=== PATIENT | female | born 1960 | race Caucasian/White ===

== ENCOUNTER 2016-11-29 07:49 | Day surgery (SDC) | payer OTHER ==
[2016-11-23 14:39] VITALS: BMI 31.2
[~2016-11-29 07:49] MED LIST: LACTATED RINGERS 1,000 ML IV SCH
[2016-11-29 08:13] VITALS: TEMP 97.8
[2016-11-29] MEDS ORDERED: fentaNYL (PF) 50 MCG/ML 2 ML AMP ONE (08:50)
[2016-11-29] MEDS ORDERED: MIDAZOLAM 2 MG/2 ML VIAL ONE (08:50)
[2016-11-29] MEDS ORDERED: PROPOFOL 10 MG/ML 20 ML VIAL IV ONE (08:50)
[2016-11-29] MEDS ORDERED: LIDOCAINE 1% INJ 10MG/ML (20 ML MDV) ONE (08:50)
--- NOTE | 2016-11-29 09:15 | P.PCN ---
Date of Procedure: 11/29/16 Procedure(s) Performed: Procedure: Total colonoscopy. Preoperative diagnosis: Screening for neoplasia. Postoperative diagnosis: Sigmoid diverticulosis with no evidence of acute diverticulitis, strictures, polyps or cancer. Preparation: HalfLytely prep. Sedation: Was provided by anesthesia. Brief clinical history: The patient is a 56-year-old female who is referred for this evaluation for screening for neoplasia, age being her risk factor. She has no abdominal complaints, bleeding or anemia. No family history of colon cancer. This would be her first colonoscopy. Procedure: With the patient on her left lateral decubitus position and after informed consent and adequate sedation, the perianal area was inspected and it did not show any fissures or fistulas. There were no masses felt on digital rectal examination. The Olympus CFQ 160L video colonoscope was then inserted in the rectum in the usual fashion and advanced to the cecum. There were multiple diverticular orifices noted scattered in the sigmoid with no evidence of acute diverticulitis or strictures. No polyps or tumors were seen. I retroflexed endoscope in the rectum before the endoscope was withdrawn. The patient tolerated the procedure well. Plan: The patient was reassured. Discussed dietary measures. She will follow- up with you as planned and I recommended a repeat exam in 10 years.
[2016-11-29 09:17] VITALS: RESP 16
[2016-11-29 09:41] VITALS: BP 128/86; PULSE 77
== END 2016-11-29 10:04 | disposition home or self-care (01) ==
LOC: ORWHC2ENDO 07:49
DX: Z12.11 Encounter for screening for malignant neoplasm of colon (principal); K57.30 Diverticulosis of large intestine without perforation or abscess without bleeding; E03.9 Hypothyroidism, unspecified; I10 Essential (primary) hypertension; Z79.899 Other long term (current) drug therapy; Z91.09 Other allergy status, other than to drugs and biological substances
CPT/HCPCS: J2250; J2001; J3010; J2704; G0121; 99153

== ENCOUNTER → 2016-12-14 | Outpatient (CLI) | payer OTHER ==
--- NOTE | 2016-12-14 16:09 | XR ---
EXAMINATION TYPE: XR shoulder complete LT DATE OF EXAM ORDERED: 12/14/2016 3:03 PM HISTORY: Chronic left-sided shoulder pain. COMPARISON: None. FINDINGS: There is amorphous calcification overlying the expected course of the supraspinatus tendon . This may reflect chronic calcific tendinosis. No fracture, dislocation or other acute osseous lesio n is seen. 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
== END | disposition home or self-care (01) ==
LOC: LABWHC1 14:30
PROVIDERS: ATTEND Family Medicine
DX: M25.512 Pain in left shoulder (principal); E03.9 Hypothyroidism, unspecified
CPT/HCPCS: 36415; 84439; 84443

== ENCOUNTER → 2019-04-01 | Outpatient (CLI) | payer BC ==
--- NOTE | 2019-04-02 09:16 | MM ---
Reason for exam: screening (asymptomatic). Last mammogram was performed 2 years and 8 months ago. History: Patient is postmenopausal and had first child at age 31. Took hormonal contraceptives for 21 years beginning at age 23. Took estrogen for 1 year 10 months beginning at age 50. Took progesterone for 4 years 10 months beginning at age 50. Physical Findings: A clinical breast exam by your physician is recommended on an annual basis and results should be correlated with mammographic findings. MG 3D Screening Mammo W/Cad Bilateral CC and MLO view(s) were taken. Prior study comparison: August 03, 2016, bilateral MG screening mammo w CAD. June 29, 2015, bilateral MG screening mammo w CAD. There are scattered fibroglandular densities. No significant changes when compared with prior studies. ASSESSMENT: Negative, BI-RAD 1 RECOMMENDATION: Routine screening mammogram of both breasts in 1 year.
== END | disposition home or self-care (01) ==
LOC: RADMAMWWP 03-31 12:34
PROVIDERS: ATTEND Obstetrics & Gynecology
DX: Z12.31 Encounter for screening mammogram for malignant neoplasm of breast (principal)
CPT/HCPCS: 77063; 77067

== ENCOUNTER → 2020-08-22 | Outpatient (CLI) | payer BC ==
--- NOTE | 2020-08-23 14:01 | MM ---
Reason for exam: screening (asymptomatic). Last mammogram was performed 1 year and 5 months ago. History: Patient is postmenopausal and had first child at age 31. Took hormonal contraceptives for 21 years beginning at age 23. Took estrogen for 1 year 10 months beginning at age 50. Took progesterone for 4 years 10 months beginning at age 50. Physical Findings: A clinical breast exam by your physician is recommended on an annual basis and results should be correlated with mammographic findings. MG 3D Screening Mammo W/Cad Bilateral CC and MLO view(s) were taken. Prior study comparison: April 01, 2019, bilateral MG 3d screening mammo w/cad. August 03, 2016, bilateral MG screening mammo w CAD. There are scattered fibroglandular densities. No significant changes when compared with prior studies. ASSESSMENT: Benign, BI-RAD 2 RECOMMENDATION: Routine screening mammogram of both breasts in 1 year.
== END | disposition home or self-care (01) ==
LOC: RADMAMWWP 10:46
PROVIDERS: ATTEND Family Medicine
DX: Z12.31 Encounter for screening mammogram for malignant neoplasm of breast (principal)
CPT/HCPCS: 77063; 77067

== ENCOUNTER 2020-12-25 12:43 | Emergency (ER) | payer BC ==
[2020-12-25 12:47] VITALS: RESP 18; TEMP 98.4
[2020-12-25] MEDS ORDERED: diphenhydrAMINE 50 MG/ML 1 ML VIAL IVP STA (12:56)
[2020-12-25] MEDS ORDERED: FAMOTIDINE 20 MG/2 ML VIAL IV STA (12:56)
[2020-12-25] MEDS ORDERED: methylPREDNISolone SOD SUCCI 125 MG/2 ML VIAL IV STA (12:56)
--- NOTE | 2020-12-25 13:23 | ED ---
General Adult HPI - General Chief complaint: Allergic Reaction Stated complaint: bilat eye swelling Time Seen by Provider: 12/25/20 12:49 Source: patient Mode of arrival: ambulatory Limitations: no limitations - History of Present Illness Initial comments: 60-year-old female with a past medical history of hypertension, thyroid disorder presents to the emergency room for swelling of the eyes. Patient reports that about 3 hours prior to arrival she had a slight cough start and then she developed congestion. Patient states that her eyes started swelling. Patient did take one Benadryl prior to arrival. Patient denies shortness of breath. Denies swelling of lips tongue or throat. Patient states she started new medication yesterday called Previgen for memory loss. She did not have any issues yesterday however did take another dose today. Symptoms started a couple hours after. Patient also noted to have several environmental ALLERGIES inclu ding CAT dander, dog dander, treated shrug:.Patient has no other complaints at this time including shortness of breath, chest pain, abdominal pain, nausea or vomiting, headache, or visual changes. - Related Data Home Medications Medication Instructions Recorded Confirmed Allergy Relief 10mg 10 mg PO DAILY 11/23/16 11/29/16 Aspirin 81 mg PO DAILY 11/23/16 11/23/16 Lisinopril [Zestril] 10 mg PO DAILY 11/23/16 11/29/16 Ascorbic Acid [Vitamin C] 1,000 mg PO DAILY 12/25/20 12/25/20 [id number] 1 tab PO Q4HR PRN 12/25/20 12/25/20 [Excedrin] Levothyroxine Sodium [Synthroid] 75 mcg PO DAILY 12/25/20 12/25/20 Multivitamins, Thera [Multivitamin 1 tab PO DAILY 12/25/20 12/25/20 (formulary)] diphenhydrAMINE [Benadryl] 25 mg PO BID PRN 12/25/20 12/25/20 Previous Rx's Medication Instructions Recorded Famotidine [Pepcid] 20 mg PO BID #30 tablet 12/25/20 predniSONE 50 mg PO DAILY #4 tablet 12/25/20 Allergies Allergy/AdvReac Type Severity Reaction Status Date / Time cat dander Allergy SINUS Verified 12/25/20 13:45 dog dander Allergy SINUS Verified 12/25/20 13:45 tree and shrub pollen Allergy Rash/Hives Verified 12/25/20 13:45 Review of Systems ROS Statement: Those systems with pertinent positive or pertinent negative responses have been documented in the HPI. ROS Other: All systems not noted in ROS Statement are negative. Past Medical History Past Medical History: Hypertension, Osteoarthritis (OA), Thyroid Disorder History of Any Multi-Drug Resistant Organisms: None Reported Past Surgical History: Section Additional Past Surgical History / Comment(s): NASAL SURGERY Past Anesthesia/Blood Transfusion Reactions: No Reported Reaction Past Psychological History: Anxiety Smoking Status: Never smoker Past Alcohol Use History: Occasional Past Drug Use History: None Reported - Past Family History Mother Family Medical History: Cancer General Exam Limitations: no limitations General appearance: alert, in no apparent distress Head exam: Present: atraumatic Eye exam: Present: PERRL, EOMI, periorbital swelling (bilateral, fluctant, non- indurated, non-erythematous). Absent: scleral icterus, conjunctival injection ENT exam: Present: normal exam, normal oropharynx (No swelling of the lips tongue or throat), mucous membranes moist Neck exam: Present: normal inspection, full ROM. Absent: tenderness Respiratory exam: Present: normal lung sounds bilaterally. Absent: respiratory distress, wheezes, rales, rhonchi Cardiovascular Exam: Present: regular rate, normal rhythm, normal heart sounds GI/Abdominal exam: Present: soft, normal bowel sounds. Absent: distended, tenderness, guarding, rebound, rigid Course Vital Signs 12/25/20 12:44 Temperature 98.4 F Pulse Rate 106 H Respiratory 18 Rate Blood Pressure 138/89 O2 Sat by Pulse 97 Oximetry Medical Decision Making - Medical Decision Making Vitals are stable. Patient does have some swelling of the bilateral eyes and some congestion. No swelling of the lips tongue or throat. No shortness of breath. Patient has several environmental ALLERGIES. Patient also recently started a new medication with ginkgo root last night. She had this again this morning. I suspect this is the cause of her symptoms. Patient was given IV Benadryl, Solu-Medrol, and Pepcid in the emergency room. She did have some improvement in symptoms, did not have any deterioration of condition. At this time I discussed medication regimen for ALLERGIC reaction. Discussed going up with primary care. If this continues patient may need to see an author agent. She is aware of strict return parameters which I discussed in depth. I discussed this case with attending Dr. Calvin who agrees with this assessment and treatment plan. Disposition Clinical Impression: Allergic reaction Disposition: HOME SELF-CARE Instructions (If sedation given, give patient instructions): General Allergic Reaction (ED) Additional Instructions: Please discontinue Prevagen. Please take medications as directed. Apply cool compresses to the area. Remember that he will worsen this. Follow-up with your doctor in one to 2 days for recheck. If you have any worsening symptoms such as worsening swelling of the eyes, or develops swelling of her lips tongue or throat or shortness of breath return immediately to the emergency room. Prednisone (steroid): You were given her daily dose today. Take First dose of prescription starting tomorrow morning Pepcid: Take this twice per day. You were given one dose today so take evening dose later tonight. Benadryl: Take 50 mg every 6 hours. Prescriptions: Famotidine [Pepcid] 20 mg PO BID #30 tablet predniSONE 50 mg PO DAILY #4 tablet Is patient prescribed a controlled substance at d/c from ED?: No Referrals: Asya Scott MD [Primary Care Provider] - 1-2 days Time of Disposition: 13:56
[2020-12-25 14:24] VITALS: BP 122/85; PULSE 88
== END 2020-12-25 14:27 | disposition home or self-care (01) ==
LOC: EC 12:43
DX: T78.40XA Allergy, unspecified, initial encounter (principal); I10 Essential (primary) hypertension; E07.9 Disorder of thyroid, unspecified; M19.90 Unspecified osteoarthritis, unspecified site; Z79.82 Long term (current) use of aspirin; Z79.899 Other long term (current) drug therapy; Z79.890 Hormone replacement therapy; Z91.048 Other nonmedicinal substance allergy status
CPT/HCPCS: 99283; 96374; 96375 ×2; J1200; J2930